=== PATIENT | male | born 1985 | race African-American/Black ===

== ENCOUNTER 2021-04-14 22:52 | Emergency (ER) | payer MEDICAID ==
[~2021-04-14] VITALS: Ht 170.2 cm; Wt 69.0 kg
[2021-04-14 23:04] VITALS: BP 110/50
[2021-04-15] MEDS: IBUPROFEN 600MG TABLET PO ONE
[2021-04-15] MEDS ORDERED: IBUP-2028 MT (00:05)
== END 2021-04-15 00:44 | disposition home or self-care (01) ==
LOC: ER 22:52
DX: S09.8XXA Other specified injuries of head, initial encounter (principal); M79.674 Pain in right toe(s); V43.52XA Car driver injured in collision with other type car in traffic accident, initial encounter; Y93.89 Activity, other specified; Y92.488 Other paved roadways as the place of occurrence of the external cause
CPT/HCPCS: 73630; 99283